=== PATIENT | female | born 1960 | race Caucasian/White ===

== ENCOUNTER 2021-03-27 01:45 | Emergency (ER) | payer OTHER ==
[2021-03-27 02:20] LABS: BILIRUBIN,URINE NEGATIVE (NEGATIVE); GLUCOSE, URINE (UA) NEGATIVE (NEGATIVE); KETONES,URINE (UA) NEGATIVE (NEGATIVE); LEUKOCYTE ESTERASE, URINE NEGATIVE (NEGATIVE); NITRITE,URINE NEGATIVE (NEGATIVE); OCCULT BLOOD,URINE NEGATIVE (NEGATIVE); PROTEIN,URINE NEGATIVE (NEGATIVE); UROBILINOGEN,URINE 0.2 (NORMAL) E.U./dL (NORMAL)
[2021-03-27 02:21] LABS: CLARITY,URINE CLEAR (CLEAR)
[2021-03-27] MEDS ORDERED: MORPHINE 10 MG/ML VIAL IVP STA (02:25)
[2021-03-27] MEDS ORDERED: SODIUM CHLORIDE 0.9% 1,000 ML IV STA (02:25)
[2021-03-27] MEDS ORDERED: MORPHINE 2 MG/ML CARPUJECT ONE ×2 (02:37→04:01)
[2021-03-27] MEDS ORDERED: IOPAMIDOL-300 100 ML VIAL ONE (02:43)
[2021-03-27] MEDS ORDERED: MORPHINE 2 MG/ML CARPUJECT IVP STA ×2 (02:55→03:52)
--- NOTE | 2021-03-27 02:59 | ED Physician Documentation ---
History of Present Illness - Stated complaint Stated Complaint: SIDE/BACK PX - Chief complaint Chief Complaint: Abd Pain - History obtained from History obtained from: Patient, Family (spouse) - Additonal information Additional information: 60-year-old woman with history of kidney stones presents with right flank pain radiating to the right upper quadrant since 01/30. Patient states that she has had symptoms constantly since that time that have been progressively worsening and has seen multiple doctors and had extensive work-up for it. She had a negative urinalysis on 02/13, negative labs and CT abdomen and pelvis on 02/21, had a appointment with her primary care doctor on 02/24 during which she said that she had musculoskeletal pain as the cause of her symptoms and given IM injection in the back with some improvement. She was then referred to spinal physiatry after having persistent symptoms, obtained an MRI about 10 days ago that showed no abnormalities. She has a gastroenterology appointment next Saturday but is here in the emergency department tonight because she has been unable to sleep and is completely miserable. pain is "11/10 or 08/04", worse with pressing on the abdomen or back, worse with breathing, better with walking around. sharp quality with intermittent spasms. improves somewhat with ibuprofen. denies fevers, urinary sx, diarrhea. +nausea. PSH james and appy. Social hx - lives with . daily wine drinker (2 glasses daily) Review of Systems Ten Systems: 10 systems reviewed and negative Constitutional: denies: Fever, Chills Respiratory: denies: Cough GI: reports: Abdominal Pain, Nausea. denies: Vomiting, Constipation, Diarrhea : denies: Dysuria Musculoskeletal: reports: Back pain PD PAST MEDICAL HISTORY - Past Medical History Past Medical History: Yes Cardiovascular: Hypertension - Past Surgical History Past Surgical History: Yes General: Cholecystectomy, Appendectomy Ortho: Carpal Tunnel surgery /DEVELOPMENT INTERN: section - Present Medications Home Medications: Ambulatory Orders Medication Instructions Recorded Confirmed Chlorthalidone 25 mg PO BID 01/31/15 03/27/21 atenoloL [Tenormin] 25 mg PO DAILY 01/31/15 03/27/21 Cholecalciferol [Vitamin D3] 1 cap PO DAILY 03/27/21 03/27/21 Cyclobenzaprine [Flexeril] 10 mg PO TID PRN 6 Days #20 tablet 03/27/21 Ketorolac [Toradol] 10 mg PO Q6H PRN #30 tablet 03/27/21 Potassium Chloride 20 meq PO DAILY 03/27/21 03/27/21 - Allergies Allergies/Adverse Reactions: Allergies Allergy/AdvReac Type Severity Reaction Status Date / Time adhesive Allergy Intermediate blisters Verified 03/27/21 01:58 latex Allergy Intermediate Rash Verified 03/27/21 01:58 lisinopril Allergy Mild cough Verified 03/27/21 01:58 loratadine [From Claritin] AdvReac Severe IHR Verified 03/27/21 01:58 - Social History Does the pt smoke?: No Smoking Status: Never smoker Does the pt drink ETOH?: Yes Does the pt have substance abuse?: No - Immunizations Immunizations are current?: Yes - POLST Patient has POLST: No PD ED PE NORMAL - Vitals Vital signs reviewed: Yes - General General: Alert and oriented X 3, Well developed/nourished, Other (anxious appearing) - HEENT HEENT: Atraumatic, PERRL, EOMI - Neck Neck: Supple, no meningeal sign - Cardiac Cardiac: RRR - Respiratory Respiratory: No respiratory distress, Clear bilaterally - Abdomen Abdomen: Other (difficult to examine. when touching the abdomen patient endorses severe pain and is unable to submit to palpation 2/2 pain.) Results - Vitals Vitals: Vital Signs - 24 hr 03/27/21 03/27/21 03/27/21 01:45 03:01 03:41 Temperature 36.1 C L Heart Rate 60 51 L 60 Respiratory 16 18 18 Rate Blood Pressure 166/101 H 178/79 H 163/90 H O2 Saturation 97 98 100 03/27/21 03/27/21 03/27/21 04:02 04:26 05:51 Temperature Heart Rate 51 L 47 L 56 L Respiratory 16 12 16 Rate Blood Pressure 165/64 H 165/84 H 166/84 H O2 Saturation 99 100 100 Oxygen O2 Source Room air - Labs Labs: Laboratory Tests 03/27/21 03/27/21 03/27/21 02:00 02:50 02:50 WBC 6.9 RBC 4.38 Hgb 14.1 Hct 39.8 MCV 90.9 MCH 32.2 H MCHC 35.4 RDW 11.3 L Plt Count 179 MPV 10.1 Neut # (Auto) 3.4 Lymph # (Auto) 2.6 [place] # (Auto) 0.7 Eos # (Auto) 0.1 Baso # (Auto) 0.1 Absolute Nucleated RBC 0.00 Nucleated RBC % 0.0 Sodium 136 Potassium 3.1 L Chloride 99 L Carbon Dioxide 28 Anion Gap 9.0 BUN 27 H Creatinine 0.8 Estimated GFR (MDRD) 73 L Glucose 122 H Calcium 10.1 Total Bilirubin 0.9 AST 21 ALT 41 Alkaline Phosphatase 48 Total Protein 6.9 Albumin 4.5 Globulin 2.4 Albumin/Globulin Ratio 1.9 Lipase 52 H Urine Color YELLOW Urine Clarity CLEAR Urine pH 7.0 Ur Specific [place] 1.020 Urine Protein NEGATIVE Urine Glucose (UA) NEGATIVE Urine Ketones NEGATIVE Urine Occult Blood NEGATIVE Urine Nitrite NEGATIVE Urine Bilirubin NEGATIVE Urine Urobilinogen 0.2 (NORMAL) Ur Leukocyte Esterase NEGATIVE Ur Microscopic Review NOT INDICATED Urine Culture Comments NOT INDICATED PD MEDICAL DECISION MAKING - ED course ED course: 60-year-old woman presents with chronic abdominal and back pain over the past 2 months, seen by multiple doctors without definitive diagnosis. Her work-up here in the emergency department is unremarkable. Patient is feeling a little better after symptomatic care. pain in the abdomen and back got down to a 5/10 but then rebounded a couple times and she also developed similar pain in the right chest around 4:30am, 3/10, relieved with toradol. no other associated symptoms. Will discharge home with return precautions and plan to follow-up her gastroenterology appointment next Saturday. Departure - Departure Disposition: 01 Home, Self Care Clinical Impression: Muscle spasm, Abdominal pain Condition: Stable Instructions: ED Abdominal Pain Unkn Cause Prescriptions: Cyclobenzaprine [Flexeril] 10 mg PO TID PRN 6 Days #20 tablet PRN Reason: Spasms Ketorolac [Toradol] 10 mg PO Q6H PRN #30 tablet PRN Reason: Pain Comments: You were seen in the emergency department for abdominal and back pain. Your potassium was a little low at 3.1, so we gave you a potassium supplement in the emergency department. Your lab work and imaging was otherwise unremarkable. At this time, the cause of your pain is unknown but does not appear to be an emergency. Please follow-up with your appointment with gastroenterology next Saturday. Return to the emergency department if you have any new or worsening symptoms or other concerns. Best wishes, and hope you feel better!
[2021-03-27 03:03] LABS: BASOPHILS # (AUTO) 0.1 10^3/uL (0.0-0.1); BASOPHILS % (AUTO) 0.7 %; EOSINOPHILS # (AUTO) 0.1 10^3/uL (0.0-0.7); HCT - HEMATOCRIT 39.8 % (37.0-47.0); HGB - HEMOGLOBIN 14.1 g/dL (12.0-16.0); LYMPHOCYTES # (AUTO) 2.6 10^3/uL (1.5-3.5); LYMPHOCYTES % (AUTO) 37.8 %; MEAN CORPUSCULAR HEMOGLOBIN 32.2 pg (27.0-31.0); MEAN CORPUSCULAR HGB CONC 35.4 g/dL (32.0-36.0); MEAN CORPUSCULAR VOLUME 90.9 fL (81.0-99.0); MEAN PLATELET VOLUME 10.1 fL (7.9-10.8); MONOCYTES # (AUTO) 0.7 10^3/uL (0.0-1.0); MONOCYTES % (AUTO) 10.2 %; NEUTROPHILS # (AUTO) 3.4 10^3/uL (1.5-6.6); NEUTROPHILS % (AUTO) 49.2 %; PLT - PLATELET COUNT 179 10^3/uL (130-450); RED BLOOD COUNT 4.38 10^6/uL (4.20-5.40); RED CELL DISTRIBUTION WIDTH 11.3 % (12.0-15.0); WHITE BLOOD COUNT 6.9 x10^3/uL (4.8-10.8)
[2021-03-27 03:17] LABS: ALBUMIN 4.5 g/dL (3.2-5.5); ALBUMIN/GLOBULIN RATIO 1.9 (1.0-2.2); BILIRUBIN,TOTAL 0.9 mg/dL (0.2-1.0); CALCIUM 10.1 mg/dL (8.5-10.3); CREATININE 0.8 mg/dL (0.4-1.0); POTASSIUM 3.1 mmol/L (3.5-5.0); TOTAL PROTEIN 6.9 g/dL (6.7-8.2)
[2021-03-27] MEDS ORDERED: POTASSIUM CHLORIDE 20 MEQ/15 ML UDC PO STA (03:28)
[2021-03-27] MEDS ORDERED: POTASSIUM CHLORIDE 20 MEQ/15 ML UDC ONE (03:42)
[2021-03-27] MEDS ORDERED: IOPAMIDOL-300 100 ML VIAL IVP ONE (03:47)
[2021-03-27] MEDS ORDERED: KETOROLAC 15 MG/ML VIAL IVP STA (04:32)
[2021-03-27] MEDS ORDERED: KETOROLAC 15 MG/ML VIAL ONE (04:40)
[2021-03-27] MEDS ORDERED: CYCLOBENZAPRINE 10 MG TABLET PO STA (05:40)
[2021-03-27] MEDS ORDERED: CYCLOBENZAPRINE 10 MG TABLET PO ONE (05:49)
[2021-03-27 06:39] VITALS: BP 150/75
--- NOTE | 2021-03-27 12:04 | CT Report ---
PROCEDURE: Abdomen/Pelvis W INDICATIONS: Abdominal pain, acute, nonlocalized CONTRAST: IV CONTRAST: Isovue 300 ml: 100 PO CONTRAST: *NO PO CONTRAST TECHNIQUE: After the administration of intravenous contrast, 5 mm thick sections acquired from the diaphragms to the symphysis. 5 mm thick coronal and sagittal reformats were acquired. For radiation dose reducti on, the following was used: automated exposure control, adjustment of mA and/or kV according to suzi ent size. COMPARISON: Ultrasound abdomen, 01/31/2015. FINDINGS: Image quality: Excellent. ABDOMEN: Lung bases: Lung bases are clear. Heart size is normal. Tiny hiatal hernia. Solid organs: Liver and spleen are normal in size and enhancement. Mild hepatic steatosis. Gallblad jono is surgically absent. Biliary system is non dilated. Pancreas enhances normally. No adrenal no dules. Kidneys demonstrate normal size and enhancement, without hydronephrosis. Peritoneum and bowel: Bowel loops demonstrate normal wall thickness and caliber. Appendix surgicall y removed. No free fluid or air. Nodes and vessels: No retroperitoneal or mesenteric adenopathy by size criteria. Aorta and inferior vena cava are normal in size. Miscellaneous: No ventral hernias. PELVIS: Genitourinary: Bladder wall thickness is normal. Uterus and ovaries are unremarkable. Miscellaneous: No inguinal hernias or adenopathy. Bones: No suspicious bony lesions. No vertebral body compression fractures. Degenerative disc and facet disease at L3-L4, L4-L5 and L5-S1. IMPRESSION: 1. No acute intra-abdominal or pelvic process. No significant discrepancy with the preliminary interpretation. Reviewed by: Dominique Hernandez MD on 03/27/2021 12:03 PM PDT Approved by: Dominique Hernandez MD on 03/27/2021 12:03 PM PDT Station ID: [id number]
== END 2021-03-27 06:45 | disposition home or self-care (01) ==
LOC: ED 01:45
DX: M62.838 Other muscle spasm (principal); R10.9 Unspecified abdominal pain; M54.9 Dorsalgia, unspecified; G89.29 Other chronic pain; R07.9 Chest pain, unspecified; E87.6 Hypokalemia; I10 Essential (primary) hypertension
CPT/HCPCS: 36415; 74177; 80053; 81003; 83690; 85025; 96374; 96375; 96376; 99284; A9270; Q9967; 81001; 87086